=== PATIENT | female | born 1935 | race Caucasian/White ===

== ENCOUNTER 2024-01-26 12:32 | Emergency (ER) | payer MEDICARE, OTHER, SELFPAY ==
[2024-01-26 12:37] VITALS: BP 127/86
[2024-01-26 13:00] VITALS: BP 125/89
[2024-01-26 14:00] VITALS: BP 139/96
[2024-01-26 15:00] VITALS: BP 142/86
[2024-01-26 16:00] VITALS: BP 141/98
--- NOTE | 2024-01-26 16:16 | ED.GENMED ---
History of Present Illness
<Solis Salgado DO - Last Filed: 01/26/24 20:08>
General
Chief Complaint: Eye Problems
Source: patient
Time Seen by Provider: 01/26/24 14:48
Travel History
Have you had any contact with someone who has COVID-19?: No
Do you have any symptoms of coronavirus? Fever > 100 degrees, chills, cough, shortness of breath, sore throat, loss of taste or smell, muscle aches, or headache?: No
<Hafsa Garcia PA-C - Last Filed: 01/26/24 21:27>
General
Exam Limitations: none
Nursing documentation reviewed up to this point in time: agreed with
History of Present Illness
History of Present Illness:
88 y/o F with h/o afib not anticoagulated
retinal detachment
dementia
here from [place] with c/o 4 days intermittent eye pain
she says she feels irritation in the eye and some blurriness of vision
2 days ago she then had a day where it was very achy 'like i got a baseball to the eye' but she never lost vision
she has not had any clear tearing or discharge, or eyelid pain
she has been able to move her eye around
no problem chewing, no headache, no scalp tenderness
no waeknaese/numbness/tingling in arms or legs
she has appt with dr franco next month and has a [facility] eye doctor whom has esen her for her retina on the R eye previously but she didn't want to wait so she is here requesting eye appt
Past History
<Solis Salgado DO - Last Filed: 01/26/24 20:08>
Past History
ED Past Medical History: Arrthythmia (PAF) and Other (psoriatic arthritis; RA, Lyme disease, salmonella, hiatal hernia, uterine fibroids, symptomatic AV block. hypokalemia, duodenal ulcer.)
ED Past Surgical History: Appendectomy and Cardiac (pacemaker)
Social History
Tobacco: Non-smoker
Alcohol: Occasional
Drug: None
Personal: Single
Living: alone
Employment: Retired
Family History
Family History: Other (Noncontributory)
<Hafsa Garcia PA-C - Last Filed: 01/26/24 21:27>
Review of Systems
Allergies reviewed?: Yes
All Other Systems: Not applicable
<Hafsa Garcia PA-C - Last Filed: 01/26/24 21:27>
Physical Exam
Physical Exam:
GENERAL: Alert , in no apparent distress
EYE: R pupil irregular, not reactive
left pupil 2 mm
mild injection left eye
no tearing
retina not visualized well on opthalmic exam
eoms intact
fluorosceine stain no uptake
tetracaine took pain away
slit lamp exam by dr. salgado neg
pressure 8 and 9 left and right eye
NECK: Supple
CARDIAC: Regular rate and rhythm, no edema
LUNGS: Clear breath sounds bilaterally, no acute respiratory distress, no wheezes/rales/rhonchi,
NEUROLOGICAL: Alert and oriented, no focal neuro deficits
SKIN: Warm and dry, skin intact.
MUSCULOSKELETAL: No edema, well perfused.
PSYCH: occasionally irritable
Course
Kathylt;Solis Salgado DO - Last Filed: 01/26/24 20:08>
Orders/Labs/Results
Orders:
Orders
01/26/24 16:48
CRP [C-Reactive Protein] Urgent
Complete Blood Count/With Diff Urgent
Comprehensive Metabolic Panel Urgent
ESR [Erythrocyte Sed Rate] Urgent
01/26/24 17:51
Carboxymethylcellulose [Refresh Celluvisc Gel] 1 drops OPHTH DAILYPRN PRN
01/26/24 18:13
Tetracaine HCl [Tetracaine 0.5% Ophthalmic Solution] 1 drop .ROUTE .STK-MED ONE
Abnormal Lab Results
01/26/24
16:48
RBC 3.69 L 10^6/uL
(4.20-5.40)
Hgb 9.6 L g/dL
(12.0-16.0)
Hct 30.4 L %
(37.0-47.0)
MCH 26.0 L pg
(27.0-31.0)
MCHC 31.6 L g/dL
(33.0-37.0)
RDW 15.9 H %
(11.5-14.5)
Abs Immat Gran (auto) 0.1 H 10^3/uL
(0-0.05)
Absolute Monos (auto) 0.7 H 10^3/uL
(0.1-0.6)
Immature Gran % 0.7 H %
(0-0.5)
ESR 73 H mm/hour
(0-20)
Chloride 109 H mmol/L
(98-107)
Carbon Dioxide 20 L mmol/L
(22-30)
Total Protein 8.5 H g/dl
(6.3-8.2)
01/26/24 16:48
01/26/24 16:48
Vital Signs
Initial and Last Documented VS:
Initial Vital Signs
Temp Pulse Resp BP Pulse Ox
97.8 F 102 16 127/86 95
01/26/24 12:37 01/26/24 12:37 01/26/24 12:37 01/26/24 12:37 01/26/24 12:37
Last Documented Vital Signs
Temp Pulse Resp BP Pulse Ox
97.8 F 100 22 141/98 94
01/26/24 12:37 01/26/24 16:30 01/26/24 16:30 01/26/24 16:00 01/26/24 16:00
<Hafsa Garcia PA-C - Last Filed: 01/26/24 21:27>
Orders/Labs/Results
Orders:
Orders
01/26/24 16:48
CRP [C-Reactive Protein] Urgent
Complete Blood Count/With Diff Urgent
Comprehensive Metabolic Panel Urgent
ESR [Erythrocyte Sed Rate] Urgent
01/26/24 17:51
Carboxymethylcellulose [Refresh Celluvisc Gel] 1 drops OPHTH DAILYPRN PRN
01/26/24 18:13
Tetracaine HCl [Tetracaine 0.5% Ophthalmic Solution] 1 drop .ROUTE .STK-MED ONE
Abnormal Lab Results
01/26/24
16:48
RBC 3.69 L 10^6/uL
(4.20-5.40)
Hgb 9.6 L g/dL
(12.0-16.0)
Hct 30.4 L %
(37.0-47.0)
MCH 26.0 L pg
(27.0-31.0)
MCHC 31.6 L g/dL
(33.0-37.0)
RDW 15.9 H %
(11.5-14.5)
Abs Immat Gran (auto) 0.1 H 10^3/uL
(0-0.05)
Absolute Monos (auto) 0.7 H 10^3/uL
(0.1-0.6)
Immature Gran % 0.7 H %
(0-0.5)
ESR 73 H mm/hour
(0-20)
Chloride 109 H mmol/L
(98-107)
Carbon Dioxide 20 L mmol/L
(22-30)
Total Protein 8.5 H g/dl
(6.3-8.2)
01/26/24 16:48
01/26/24 16:48
Vital Signs
Initial and Last Documented VS:
Initial Vital Signs
Temp Pulse Resp BP Pulse Ox
97.8 F 102 16 127/86 95
01/26/24 12:37 01/26/24 12:37 01/26/24 12:37 01/26/24 12:37 01/26/24 12:37
Last Documented Vital Signs
Temp Pulse Resp BP Pulse Ox
97.8 F 100 22 141/98 94
01/26/24 12:37 01/26/24 16:30 01/26/24 16:30 01/26/24 16:00 01/26/24 16:00
<Hafsa Garcia PA-C - Last Filed: 01/26/24 21:27>
MDM/Problems Addressed
Differential Diagnosis Includes:
iritis, corenal abrasion, less likely retinal detachment
less likely GCA
MDM/Problems Addressed:
88 y/o F wit h/o retinal detachment right eye crhonically
left eye with irriataion, pain, and some reported vision changes
though she then said her vision is back to her bseline
no trauma
some irritation when she blinks
no jaw or forehead pain
on exam she had immeidate relief of pain with tetracaine
no uptake on stain
normal pressures
vision 20/50 lfet eye no correction
right unable to test because of her chronic issues
silt lamp by dr. salgado and normal
d/w dr. franco who can see her in the office tomorrow
she has appt 12:15 with him tomorrow
unlikely GCA
sed rate appreciated to be elevated but CRP normal
no fatigue with chewing
return precautions
seen by dr. salgado.
<Hafsa Garcia PA-C - Last Filed: 01/26/24 21:27>
*Critical Care Note
Total Time (30-74mins, 75-104mins- exclusive of procedures): Not Applicable
ED Attending Note
<Solis Salgado DO - Last Filed: 01/26/24 20:08>
ED Attending Note
Patient seen and examined by attending physician: Yes
I performed the substantive portion of visit, reviewed & personally made and approve the management plan that is documented in note by myself or EARLENE.: Yes
ED Attending Note:
I agree with Ailin's note
Patient complaining of left eye pain. Somewhat blurred vision.
Physical exam:
Extraocular movement intact. Left eye has a normal-appearing pupil which is reactive to light. Slit-lamp exam reveals no cells or flare in the anterior chamber.
Patient's vision is actually at her baseline now per her report. The eye pain is better today than it was yesterday. There is no evidence for an acute unstable eye condition at this time. Patient will follow-up with ophthalmology tomorrow.
-
Portions of this chart may have been created with voice recognition software.� Occasional wrong word or��sound alike� substitutions may have occurred due to the inherent limitations of voice recognition software.
Discharge Plan
Departure
Patient Disposition: [facility]
Date of Disposition: 01/26/24
Time of Disposition: 19:16
Patient with high blood pressure during this ER visit?: No
Condition: Fair
Covid-19: Not Applicable
Discharge Problem:
Acute eye pain
Instructions: How to Use Eye Drops
Prescriptions:
No Action
acetaminophen [Tylenol] 325 mg Tablet
650 mg PO Q4HPRN PRN (Reason: mild pain)
loperamide 2 mg Capsule
2 mg PO DAILY
miconazole nitrate [Micro-Guard] 2 % Powder
1 applic TOPICAL BID
Rx Instructions:
apply to affected area BID for excoriation.
clobetasol 0.05 % cream
1 applic TOPICAL BID
Rx Instructions:
apply to B/L lower extremity.
zinc oxide 20 % Ointment
1 applic TOPICAL BID
Rx Instructions:
apply to perianal rash
latanoprost 0.005 % Drops
1 drp BOTH EYES QPM
ibuprofen 800 mg Tablet
800 mg PO TID PRN (Reason: mild pain)
digoxin 125 mcg (0.125 mg) Tablet
62.5 mcg PO DAILY
dorzolamide-timolol (PF) 2-0.5 % Drops
1 drp BOTH EYES BID
ibuprofen 800 mg Tablet
800 mg PO Q6H PRN (Reason: mild pain)
Referrals:
Paul Franco MD [Active] - Tomorrow (12:15 pm)
Ghazala Davila MD [Family Provider] -
Activity Restrictions/Additional Instructions:
You may have irritation on the surface of your eye. You can use the eye rewetting lubricant 2-4 times a day as needed
YOU HAVE AN APPOINTENT WITH DR. BURTON TOMORROW 01/26 AT 12:15 PM
RETURN FOR ANY CONCERNS.
Interventions
Interventions:
*Risk Screen - Suicide Last Done: 01/26/24 12:37
*General Assessment Last Done: 01/26/24 12:37
*Neglect/Abuse Screening Last Done: 01/26/24 12:37
ED- Fall Risk Assessment Last Done: 01/26/24 12:37
*ED COVID-19 Vaccine History Last Done: 01/26/24 12:37
*Nursing Disposition Last Done: 01/26/24 19:20
Discharge Date and Time
Discharge Date/Time: 01/26/24 19:20
[2024-01-26 17:00] LABS: % Basophils 0.8 % (0-2); % Eosinophils 2.1 % (0-6); % Immature Granulocytes 0.7 % (0-0.5); % Lymphocytes 25.2 % (20.5-51.1); % Monocytes 8.3 % (1.7-9.3); % Neutrophils 62.9 % (42.2-75.2); Absolute Basophils 0.1 10^3/uL (0-0.2); Absolute Eosinophils 0.2 10^3/uL (0-0.7); Absolute Immature Granulocytes 0.1 10^3/uL (0-0.05); Absolute Lymphocytes 2.3 10^3/uL (1.2-3.4); Absolute Monocytes 0.7 10^3/uL (0.1-0.6); Absolute Neutrophils 5.6 10^3/uL (1.4-6.5); Hematocrit 30.4 % (37.0-47.0); Hemoglobin 9.6 g/dL (12.0-16.0); Mean Corp Hgb Conc. 31.6 g/dL (33.0-37.0); Mean Corpuscular Volume 82.4 fL (81.0-99.0); Mean Platelet Volume 10.4 fL (7.4-10.4); Nucleated Red Blood Cells % 0 %; Platelet Count 278 10^3/uL (130-400); Red Blood Cell Count 3.69 10^6/uL (4.20-5.40); Red Cell Dist. Width 15.9 % (11.5-14.5)
[2024-01-26 17:12] LABS: Erythrocyte Sed Rate 73 mm/hour (0-20)
[2024-01-26 17:20] LABS: ALT (SGPT) 21 U/L (0-35); AST (SGOT) 35 U/L (14-36); Albumin 4.4 g/dl (3.5-5.0); Alkaline Phosphatase 103 U/L (38-126); Blood Urea Nitrogen 15 mg/dl (7-17); Calcium 8.9 mg/dl (8.4-10.2); Carbon Dioxide 20 mmol/L (22-30); Chloride 109 mmol/L (98-107); Glucose 96 mg/dl (70-99); Potassium 3.6 mmol/L (3.5-5.1); Sodium 138 mmol/L (135-145); Total Bilirubin 0.8 mg/dl (0.2-1.3); Total Protein 8.5 g/dl (6.3-8.2); eGFR > 60.00
[2024-01-26 17:22] LABS: C-Reactive Protein < 5.00 mg/L (0.0-10.00)
== END 2024-01-26 19:20 ==
LOC: EMR 12:32
PROVIDERS: Physician Assistant; EMERGENCY PHYSICIAN Emergency Medicine; FAMILY PHYSICIAN Internal Medicine Geriatric Medicine
DX: H57.12 Ocular pain, left eye (principal); I48.91 Unspecified atrial fibrillation; H33.21 Serous retinal detachment, right eye; F03.90 Unspecified dementia, unspecified severity, without behavioral disturbance, psychotic disturbance, mood disturbance, and anxiety; K44.9 Diaphragmatic hernia without obstruction or gangrene; M06.9 Rheumatoid arthritis, unspecified; Z90.49 Acquired absence of other specified parts of digestive tract; Z95.0 Presence of cardiac pacemaker
CPT/HCPCS: 99283; 80053; 85025; 85652; 86140

== ENCOUNTER 2024-03-12 10:47 | Outpatient (RCR) | payer MEDICARE, OTHER, SELFPAY ==
[2024-03-12] VITALS (9 sets, daily range): BP systolic 92–108; BP diastolic 48–73
[2024-03-12] MEDS: TYLENOL 650 MG PO (11:25)
[2024-03-12] MEDS: NSS 250 IV (11:26)
[2024-03-12] MEDS: ZYRTEC 10 MG PO (11:26)
[2024-03-12 11:40] LABS: % Basophils 0.7 % (0-2); % Eosinophils 1.6 % (0-6); % Immature Granulocytes 0.3 % (0-0.5); % Lymphocytes 20.1 % (20.5-51.1); % Monocytes 10.6 % (1.7-9.3); % Neutrophils 66.7 % (42.2-75.2); Absolute Basophils 0.1 10^3/uL (0-0.2); Absolute Eosinophils 0.2 10^3/uL (0-0.7); Absolute Lymphocytes 2.1 10^3/uL (1.2-3.4); Absolute Monocytes 1.1 10^3/uL (0.1-0.6); Hematocrit 35.8 % (37.0-47.0); Hemoglobin 11.5 g/dL (12.0-16.0); Mean Corp Hgb Conc. 32.1 g/dL (33.0-37.0); Mean Corpuscular Hgb 24.9 pg (27.0-31.0); Mean Corpuscular Volume 77.7 fL (81.0-99.0); Mean Platelet Volume 10.6 fL (7.4-10.4); Nucleated Red Blood Cells % 0 %; Platelet Count 291 10^3/uL (130-400); Red Blood Cell Count 4.61 10^6/uL (4.20-5.40); Red Cell Dist. Width 15.6 % (11.5-14.5); White Blood Cell Count 10.5 10^3/uL (4.8-10.8)
[2024-03-12] MEDS: SOLU-MEDROL PF 1 MG IV (11:46)
[2024-03-12] MEDS: REMICADE 250 MG IV (11:46)
[2024-03-12] MEDS: REMICADE 250 ML IV (11:46)
[2024-03-12 12:00] LABS: ALT (SGPT) 16 U/L (0-35); AST (SGOT) 33 U/L (14-36); Albumin 4.7 g/dl (3.5-5.0); Alkaline Phosphatase 77 U/L (38-126); Blood Urea Nitrogen 40 mg/dl (7-17); Calcium 9.6 mg/dl (8.4-10.2); Carbon Dioxide 23 mmol/L (22-30); Chloride 98 mmol/L (98-107); Direct Bilirubin 0.5 mg/dl (0.0-0.4); Glucose 99 mg/dl (70-99); Potassium 2.8 mmol/L (3.5-5.1); Sodium 137 mmol/L (135-145); Total Bilirubin 0.8 mg/dl (0.2-1.3); Total Protein 8.9 g/dl (6.3-8.2); eGFR > 60.00
== END 2024-03-13 23:59 | disposition home or self-care (01) ==
LOC: OID 10:47
PROVIDERS: ATTENDING PHYSICIAN Internal Medicine Rheumatology; FAMILY PHYSICIAN Family Medicine
DX: L40.50 Arthropathic psoriasis, unspecified (principal)
CPT/HCPCS: 36415; 80053; 82248; 85025; 96361; 96375; 96413; 96415; J1745

== ENCOUNTER 2024-04-23 10:51 | Outpatient (RCR) | payer MEDICARE, OTHER, SELFPAY ==
[2024-04-23] VITALS (11 sets, daily range): BP systolic 84–125; BP diastolic 56–93
[2024-04-23] MEDS: ZYRTEC 10 MG PO (11:21)
[2024-04-23] MEDS: TYLENOL 650 MG PO (11:21)
[2024-04-23] MEDS: NSS 250 IV (11:21)
[2024-04-23] MEDS: SOLU-MEDROL PF 1 MG IV (11:22)
[2024-04-23] MEDS: REMICADE 250 ML IV (11:22)
[2024-04-23] MEDS: REMICADE 250 MG IV (11:22)
== END 2024-04-24 07:42 | disposition home or self-care (01) ==
LOC: OID 10:51
PROVIDERS: ATTENDING PHYSICIAN Internal Medicine Rheumatology; FAMILY PHYSICIAN Family Medicine
DX: L40.50 Arthropathic psoriasis, unspecified (principal); M81.0 Age-related osteoporosis without current pathological fracture
CPT/HCPCS: 96374; 96375; 96413; 96415; J1745

== ENCOUNTER 2024-06-04 09:52 | Outpatient (RCR) | payer MEDICARE, OTHER, SELFPAY ==
[2024-06-04] VITALS (11 sets, daily range): BP systolic 88–119; BP diastolic 51–75; BMI 17.8
[2024-06-04] MEDS: TYLENOL 650 MG PO (10:48)
[2024-06-04] MEDS: SOLU-MEDROL PF 1 MG IV (10:49)
[2024-06-04] MEDS: ZYRTEC 10 MG PO (10:49)
[2024-06-04] MEDS: NSS 250 IV (10:50)
[2024-06-04 10:55] LABS: % Basophils 0.2 % (0-2); % Eosinophils 0.9 % (0-6); % Immature Granulocytes 0.7 % (0-0.5); % Lymphocytes 21.7 % (20.5-51.1); % Monocytes 9.4 % (1.7-9.3); % Neutrophils 67.1 % (42.2-75.2); Absolute Eosinophils 0.1 10^3/uL (0-0.7); Absolute Immature Granulocytes 0.1 10^3/uL (0-0.05); Absolute Lymphocytes 1.9 10^3/uL (1.2-3.4); Absolute Monocytes 0.8 10^3/uL (0.1-0.6); Absolute Neutrophils 5.9 10^3/uL (1.4-6.5); Hematocrit 38.7 % (37.0-47.0); Mean Corp Hgb Conc. 33.6 g/dL (33.0-37.0); Mean Corpuscular Hgb 27.2 pg (27.0-31.0); Mean Platelet Volume 10.5 fL (7.4-10.4); Nucleated Red Blood Cells % 0 %; Platelet Count 253 10^3/uL (130-400); Red Blood Cell Count 4.78 10^6/uL (4.20-5.40); Red Cell Dist. Width 18.8 % (11.5-14.5); White Blood Cell Count 8.8 10^3/uL (4.8-10.8)
[2024-06-04] MEDS: REMICADE 250 MG IV (10:55)
[2024-06-04] MEDS: REMICADE 250 ML IV (10:55)
[2024-06-04 11:18] LABS: ALT (SGPT) 10 U/L (0-35); AST (SGOT) 22 U/L (14-36); Albumin 4.5 g/dl (3.5-5.0); Alkaline Phosphatase 71 U/L (38-126); Blood Urea Nitrogen 47 mg/dl (7-17); Calcium 9.2 mg/dl (8.4-10.2); Carbon Dioxide 18 mmol/L (22-30); Chloride 102 mmol/L (98-107); Direct Bilirubin 0.3 mg/dl (0.0-0.4); Estimated Creatinine Clearance 22 ml/min; Glucose 123 mg/dl (70-99); Potassium 3.1 mmol/L (3.5-5.1); Sodium 137 mmol/L (135-145); Total Bilirubin 0.5 mg/dl (0.2-1.3); Total Protein 8.6 g/dl (6.3-8.2); eGFR 36.41
[2024-06-04] MEDS: TYLENOL 325 MG PO (13:24)
== END 2024-06-05 08:59 | disposition home or self-care (01) ==
LOC: OID 09:52
PROVIDERS: ATTENDING PHYSICIAN Internal Medicine Rheumatology; FAMILY PHYSICIAN Family Medicine
DX: L40.50 Arthropathic psoriasis, unspecified (principal); M81.0 Age-related osteoporosis without current pathological fracture
CPT/HCPCS: 36415; 80053; 82248; 85025; 96360; 96361; 96374; 96375; 96413; 96415; J1745